=== PATIENT | female | born 2000 | race African-American/Black ===

== ENCOUNTER 2019-04-11 17:48 | Emergency (ER) | payer MEDICAID ==
[~2019-04-11] VITALS: Ht 162.6 cm; Wt 66.0 kg
[2019-04-11 19:06] LABS: CLARITY URINE CLEAR (CLEAR); COLOR URINE YELLOW (YELLOW); KETONES URINE TRACE (NEGATIVE); LEUKOCYTE ESTERASE URINE NEGATIVE (NEGATIVE); NITRITE URINE NEGATIVE (NEGATIVE); OCCULT BLOOD URINE NEGATIVE (NEGATIVE); PH URINE 5.5 (4.5-8.0); PROTEIN URINE NEGATIVE (NEGATIVE); SPECIFIC GRAVITY URINE 1.019 (1.005-1.030); UROBILINOGEN URINE 0.2 E.U./dL (0.2-1.0)
[2019-04-11 20:51] VITALS: BP 121/69
[2019-04-14 04:15] LABS: CHLAMYDIA TRACHOMATIS NAA Negative (Negative); NEISSERIA GONORRHOEAE NAA Negative (Negative)
== END 2019-04-11 20:52 | disposition home or self-care (01) ==
LOC: ER 17:48
DX: N76.0 Acute vaginitis (principal); F12.10 Cannabis abuse, uncomplicated
CPT/HCPCS: 81003; 87086; 87210; 87491; 87591; 99283; Z7610